=== PATIENT | female | born 2000 | race Caucasian/White ===

== ENCOUNTER 2019-03-17 21:38 | Emergency (ER) | payer MEDICAID ==
[~2019-03-17] VITALS: Ht 162.6 cm; Wt 59.0 kg
[2019-03-17 21:42] VITALS: BP 121/80
[2019-03-17 22:03] LABS: URINE HCG NEGATIVE (NEG)
[2019-03-17 22:06] LABS: CLARITY,URINE CLOUDY (Clear); COLOR,URINE AMBER (Yellow); GLUCOSE, URINE NEGATIVE (Neg); KETONES,URINE NEGATIVE (Neg); LEUKOCYTE ESTERASE ,URINE NEGATIVE (Neg); NITRITES, URINE NEGATIVE (Neg); OCCULT BLOOD,URINE LARGE (Neg); PH,URINE 7.5 (4.8-8.0); PROTEIN,URINE 30 mg/dl (Neg)
[2019-03-17 22:10] LABS: UA COLLECTION TYPE CLN CATCH MIDSTREAM
[2019-03-17 22:12] LABS: BACTERIA,URINE 1+ /HPF (Neg); MUCUS STRANDS NONE SEEN /LPF (Neg); SQUAMOUS EPITHELIAL CELL,UR MANY /LPF (FEW); WBC,URINE NONE SEEN /HPF (0-4)
[2019-03-17 22:13] LABS: AMORPHOUS PHOSPHATES 1+
[2019-03-17] MEDS ORDERED: azithromycin 250mg tablet PO ONE (22:35)
[2019-03-17] MEDS ORDERED: CefTRIAXone 250MG inj IM ONE (22:35)
[2019-03-17] MEDS ORDERED: CefTRIAXone 250MG IM Kit w/LIDOcaine IM ONE (22:45)
== END 2019-03-17 23:26 | disposition home or self-care (01) ==
LOC: ER 21:39
DX: R30.0 Dysuria (principal); R35.0 Frequency of micturition; R11.0 Nausea; R10.11 Right upper quadrant pain; R10.12 Left upper quadrant pain; R10.30 Lower abdominal pain, unspecified
CPT/HCPCS: 36415; 81001; 81025; 87491; 87591; 96372; 99283; J0696

== ENCOUNTER 2019-05-15 13:28 | Emergency (ER) | payer MEDICAID ==
[~2019-05-15] VITALS: Ht 162.6 cm; Wt 59.1 kg
[2019-05-15] MEDS ORDERED: dexamethasone sod phosphate 10mg/ml inj PO STA (14:28)
[2019-05-15 15:11] VITALS: BP 115/70
== END 2019-05-15 15:00 | disposition home or self-care (01) ==
LOC: ER 13:29
DX: J02.8 Acute pharyngitis due to other specified organisms (principal); Z87.440 Personal history of urinary (tract) infections
CPT/HCPCS: 87081; 87880; 99283; J1100

== ENCOUNTER 2024-11-07 11:31 | Emergency (ER) | payer MEDICAID ==
[~2024-11-07] VITALS: Ht 160 cm; Wt 59.3 kg
[2024-11-07 14:46] LABS: STREP A SCREEN NEGATIVE (Neg)
--- NOTE | 2024-11-07 15:23 | Physician Documentation ---
History of Present Illness ~ Chief Complaint: Flu Symptoms Stated Complaint: FEVER Time Seen by MD: 14:03 OK to notify your PCP?: Yes Source: patient Mode of Arrival: POV Exam Limitations: no limitations HPI 24-year-old female with fever, sore throat and body aches for the past 4 days. She has no known exposures but has been sharing drinks with people recently. She noticed that her tonsils are large and painful. Medication Reconciliation Allergies: Coded Allergies: No Known Allergies (Unverified , 03/17/19) Past Medical History Past Medical History: UTI Past Surgical History: no surgical history Alcohol Use: None Drug Use: none Lives In: Home Review of Systems All Other Systems at this time: Reviewed and Negative Physical Exam Vital Signs: RN Vital Signs have been reviewed: Yes, Temperature: 98.4, Source: Oral, Heart Rate: 88, Respiratory Rate: 16, BP: 110/77, Pulse Oximetry: 99, Weight: 59.300 Oxygen Flow Rate: 0 Pulse Oximetry Reflects: adequate oxygenation Physical Exam General: Alert, no apparent distress. HEENT: PERRL, EOMI, no injection, moist mucous membranes. Erythematous posterior pharynx and tonsils have exudates. Right tonsil 3+ left tonsil 2+. Neck: Full range of motion. Has anterior and posterior cervical lymphadenopathy. Respiratory: Lungs clear, no respiratory distress. Chest: No accessory muscle use. Cardiovascular: Regular rate and rhythm, no murmurs. Gastrointestinal: Soft, nontender, nondistended. Bowels sounds present. Extremities: Normal range of motion, no deformity. Neurologic: Oriented x4. Psychiatric: Normal mood and affect. Skin: Normal color, warm and dry. No edema, no ecchymosis. Progress Results/Orders Reviewed/noted all lab results: Yes Results/Orders Orders - AZALEA PATRICIO Cult Throat + R/O Beta Strep (11/07/24 14:46) Completed Orders - AZALEA PATRICIO Strep A Rapid (11/07/24 14:22) [place] Screen (11/07/24 15:18) Dexamethasone Inj (Decadron 10mg/Ml Inj) (11/07/24 15:18) Medications Received in ER Medications (Trade) Dose Ordered Sig/Mauro Route PRN Reason Start Time Stop Time Status Last Admin Dose Admin (Decadron 10mg/ ml inj) 10 mg ONCE STAT PO 11/07/24 15:18 11/07/24 15:19 DC 11/07/24 15:26 10 MG Vital Signs 11/07/24 11/07/24 12:02 14:15 Temp 99.3 98.4 Pulse 105 88 Resp 16 16 B/P (MAP) 131/76 110/77 (88) Pulse Ox 99 99 O2 Flow Rate 0 0 Laboratory Tests Test 11/07/24 14:21 11/07/24 15:24 Group A Streptococcus Rapid Negative Monoscreen Negative Medical Decision Making Findings 24-year-old female with fevers, body aches, sore throat. Denies any cough or runny nose. She has had a sore throat and on physical exam her right tonsil is significantly larger than the left, and has exudates on it. She does have cervical lymphadenopathy anterior and posterior. I did a strep and mono test and both were negative. i did give Decadron while here in the department to help with the swelling. I discussed this case with Dr. Armendariz as I am worried for a possible peritonsillar abscess. Dr. Armendariz examined the patient and reports that this is not a peritonsillar abscess at this point. For group B strep even though she has negative due to the exudates in size of her tonsils. I am starting her on Augmentin 1st dose given here in the department the rest sent to the pharmacy. I have also given her some ibuprofen while here in the department to help with the swelling and will discharge her with strict return instructions if this worsens. Differential Dx:Considerations: Include: Sepsis Additional Comment Infectious mononucleosis, group a strep pharyngitis, peritonsillar abscess, Jesús's angina, mumps Departure Disposition: HOME / SELF CARE / HOMELESS Impression: Primary Impression: Acute bacterial tonsillitis Condition: Stable Discharge Instructions: Tonsillectomy, Adult, Care After Additional Instructions: Be evaluated within the next 24-36 hours by a medical professional to assess for worsening signs such as an abscess. If you start having difficulty swallowing, increased swelling, for any new or worsening changes please return immediately. You can use ibuprofen for pain and swelling relief, please take all antibiotics as prescribed. Referrals: NO PRIMARY CARE PROVIDER (PCP) Education Educated: Patient Educated regarding: diagnosis, treatment, prognosis, need for follow up Additional Comment Medical Screen Exam This patient recieved a medical screening examination. After reviewing the individual's medical complaints with presenting symptoms and performing an appropriate physical examination, it was determined that no immediate life- threatening emergency medical condition is present. This individual is also not a women having contractions. Signature Scribe Signature: , Attestation: Scribed for Azalea Patriciop by Azalea Pinon NP . 11/07/24 17:35 Parts of this note were created using [employer] voice recognition software program. While efforts were made to correct any mistakes made by this voice recognition software program, nonsensical phrases may remain in this note. In addition, there may be errors and syntax, grammar, content and spelling. AZALEA PATRICIO PRACTICE LEAD Nov 07, 2024 15:23
[2024-11-07] MEDS: dexamethasone sod phosphate 10mg/ml inj PO STA (15:26)
[2024-11-07 15:47] LABS: MONOTEST NEGATIVE (Neg)
[2024-11-07] MEDS: amox tr/potassium clavulanate 875/125mg TAB PO ONE (17:38)
[2024-11-07] MEDS: ibuprofen tablet 400 MG TABLET PO ONE (17:38)
[2024-11-07] MEDS ORDERED: AMOX-117 PO (17:45)
[2024-11-07 17:47] VITALS: BP 112/70; PULSE 76; RESP 16; TEMP 98.4; O2SAT 98
== END 2024-11-07 17:48 | disposition home or self-care (01) ==
LOC: ER 11:31
DX: J03.90 Acute tonsillitis, unspecified (principal)
CPT/HCPCS: 36415; 86308; 87081; 87880; 99284; J1100